=== PATIENT | male | born 1985 | race Two or more races ===

== ENCOUNTER 2017-03-26 18:01 | Inpatient (IN) | payer MEDICAID ==
[~2017-03-26] VITALS: Ht 193 cm; Wt 99.8 kg
[2017-03-26] MEDS ORDERED: DEXTROSE 50%-WATER 50 ML DISP.SYRIN IV PRN (18:30)
[2017-03-26] MEDS ORDERED: ZOLPIDEM TARTRATE 5 MG TABLET PO PRN (18:30)
[2017-03-26] MEDS ORDERED: MAGNESIUM HYDROXIDE 30 ML UDC PO PRN (18:30)
[2017-03-26] MEDS ORDERED: ONDANSETRON HCL/PF 4 MG/2 ML VIAL IVP PRN (18:30)
[2017-03-26] MEDS ORDERED: ACETAMINOPHEN 325 MG TABLET PO PRN (18:30)
[2017-03-26] MEDS ORDERED: Z GUARD REMEDY 2 OZ OINT TP PRN (18:30)
[2017-03-26] MEDS ORDERED: MAG HYDROX/AL HYDROX/SIMETH 30 ML UDC PO PRN (18:30)
[2017-03-26] MEDS ORDERED: INSU100V7 SQ (18:58)
[2017-03-26] MEDS ORDERED: INSU100V3 SQ (18:58)
[2017-03-26] MEDS ORDERED: METF500T4 PO (18:58)
[2017-03-26 20:00] VITALS: BP 168/97
[2017-03-26] MEDS: HYDROCODONE/APAP 5/325MG 1 EACH TABLET PO PRN (21:10)
[2017-03-26 21:11] VITALS: BP 168/97
[2017-03-26] MEDS: IV NS 0.9% 1,000 ML IV PRN (21:20)
[2017-03-26] MEDS: BLOOD SUGAR DIAGNOSTIC 1 EACH STRIP VI SCH (21:20)
[2017-03-26] MEDS: *INSULIN REGULAR(HUMULIN R)HUM 100 UNIT/ML VIAL SQ PRN (21:26)
[2017-03-26] MEDS: D5W IV SCH ×2 (21:47)
[2017-03-26] MEDS: [UNRECOGNIZED DRUG - OTHER] IV SCH ×2 (21:47)
[2017-03-27] MEDS: HYDROCODONE/APAP 10/325MG 1 EA TABLET PO PRN ×2 (02:07→17:33)
[2017-03-27] MEDS: [UNRECOGNIZED DRUG - OTHER] IV SCH ×6 (05:50→20:15)
[2017-03-27] MEDS: D5W IV SCH ×6 (05:50→20:15)
[2017-03-27] MEDS: INSULIN REGULAR, HUMAN 100 UNIT/ML 3 ML VIAL SQ PRN ×3 (05:58→17:11)
[2017-03-27 06:29] LABS: BASOPHILS # (AUTO) 0.1 /CMM (0.0-0.2); BASOPHILS % (AUTO) 0.5 % (0.0-2.0); EOSINOPHILS # (AUTO) 0.3 /CMM (0.0-0.7); EOSINOPHILS % (AUTO) 2.1 % (0.0-6.0); HEMATOCRIT 36 % (39-51); HEMOGLOBIN 12.4 g/dL (13.5-17.5); LYMPHOCYTES % (AUTO) 14.5 % (20.0-44.0); MEAN CORPUSCULAR HEMOGLOBIN 29 PG (26.0-33.0); MEAN CORPUSCULAR HGB CONC 34 g/dl (31.0-36.0); MEAN CORPUSCULAR VOLUME 83 fL (80-96); MONOCYTES # (AUTO) 1.3 /CMM (0.1-1.30); MONOCYTES % (AUTO) 9.4 % (2.0-12.0); NEUTROPHILS # (AUTO) 10.3 /CMM (1.8-8.9); NEUTROPHILS % (AUTO) 73.5 % (43.0-81.0); PLATELET COUNT (AUTO) 285 /CMM (150-450); RDW COEFFICIENT OF VARIATION 11.9 (11.5-15.0); RED BLOOD CELL COUNT(AUTO) 4.34 MIL/uL (4.5-6.0)
[2017-03-27] MEDS: BLOOD SUGAR DIAGNOSTIC 1 EACH STRIP VI SCH ×4 (06:35→21:39)
[2017-03-27 06:47] LABS: CALCIUM, SERUM 9.1 mg/dL (8.5-10.1); CREATININE 1.2 mg/dL (0.6-1.3); MAGNESIUM 1.7 mg/dL (1.8-2.4); PHOSPHORUS 4.3 mg/dL (2.5-4.9); POTASSIUM 3.8 mmol/L (3.5-5.1)
[2017-03-27 08:00] VITALS: BP 148/103
[2017-03-27 09:00] VITALS: BP 152/88
[2017-03-27] MEDS: HYDROCODONE/APAP 5/325MG 1 EACH TABLET PO PRN ×3 (09:29→19:44)
[2017-03-27] MEDS: METFORMIN 500 MG TABLET PO SCH ×2 (10:04→16:23)
[2017-03-27] MEDS ORDERED: Magnesium 1GM/D5W 100ML PREMIX PIGGYBACK IV ONE (11:00)
[2017-03-27] MEDS ORDERED: Magnesium 1GM/D5W 100ML PREMIX 100 ML IV SCH (11:30)
[2017-03-27] MEDS: IV NS 0.9% 1,000 ML IV PRN (12:12)
[2017-03-27] MEDS: NEOMY SULF/BACITRAC ZN/POLY 15 GM TUBE TP SCH (12:29)
[2017-03-27 16:00] VITALS: BP 157/96
[2017-03-27 20:00] VITALS: BP 159/106
[2017-03-27 20:59] VITALS: BP 159/106
[2017-03-27] MEDS ORDERED: LIDOCAINE 1% INJ 50 ML MDV IJ ONE ×2 (21:00→22:00)
[2017-03-27] MEDS ORDERED: INSULIN DETEMIR 100 UNIT/ML CARTRIDGE SQ SCH (22:00)
[2017-03-27] MEDS: *INSULIN REGULAR(HUMULIN R)HUM 100 UNIT/ML VIAL SQ PRN (22:58)
[2017-03-28] MEDS: IV NS 0.9% 1,000 ML IV PRN (01:24)
[2017-03-28] MEDS: HYDROCODONE/APAP 5/325MG 1 EACH TABLET PO PRN ×3 (01:24→19:37)
[2017-03-28] MEDS: D5W IV SCH ×6 (04:17→20:26)
[2017-03-28] MEDS: [UNRECOGNIZED DRUG - OTHER] IV SCH ×6 (04:17→20:26)
[2017-03-28] MEDS: BLOOD SUGAR DIAGNOSTIC 1 EACH STRIP VI SCH ×4 (06:50→22:02)
[2017-03-28] MEDS: INSULIN REGULAR, HUMAN 100 UNIT/ML 3 ML VIAL SQ PRN ×3 (06:56→17:55)
[2017-03-28 08:00] VITALS: BP 159/100
[2017-03-28] MEDS: METFORMIN 500 MG TABLET PO SCH ×2 (08:02→16:58)
[2017-03-28] MEDS: NEOMY SULF/BACITRAC ZN/POLY 15 GM TUBE TP SCH (08:07)
[2017-03-28] MEDS ORDERED: SILVER NITRATE APPLICATOR 1 EA BOX TP ONE (14:00)
[2017-03-28] MEDS ORDERED: LIDOCAINE 2%-EPI 1:100,000 30 ML VIAL TP ONE (14:00)
[2017-03-28 16:00] VITALS: BP 141/90
[2017-03-28 19:56] VITALS: BP 142/92
[2017-03-28 20:01] VITALS: BP 142/92
[2017-03-28] MEDS: *INSULIN REGULAR(HUMULIN R)HUM 100 UNIT/ML VIAL SQ PRN (22:06)
[2017-03-28] MEDS: INSULIN DETEMIR 100 UNIT/ML CARTRIDGE SQ SCH (22:07)
[2017-03-29] MEDS: D5W IV SCH ×6 (04:19→22:21)
[2017-03-29] MEDS: [UNRECOGNIZED DRUG - OTHER] IV SCH ×6 (04:19→22:21)
[2017-03-29] MEDS: HYDROCODONE/APAP 10/325MG 1 EA TABLET PO PRN ×3 (04:37→22:53)
[2017-03-29] MEDS: BLOOD SUGAR DIAGNOSTIC 1 EACH STRIP VI SCH ×4 (06:14→22:25)
[2017-03-29] MEDS: INSULIN REGULAR, HUMAN 100 UNIT/ML 3 ML VIAL SQ PRN ×4 (06:33→23:05)
[2017-03-29 08:00] VITALS: BP 127/73
[2017-03-29] MEDS: METFORMIN 500 MG TABLET PO SCH ×2 (08:59→17:27)
[2017-03-29] MEDS: NEOMY SULF/BACITRAC ZN/POLY 15 GM TUBE TP SCH (09:00)
[2017-03-29 16:00] VITALS: BP 138/87
[2017-03-29 20:00] VITALS: BP 151/101
[2017-03-29] MEDS: INSULIN DETEMIR 100 UNIT/ML CARTRIDGE SQ SCH (23:04)
[2017-03-30] MEDS: D5W IV SCH ×4 (05:06→12:21)
[2017-03-30] MEDS: [UNRECOGNIZED DRUG - OTHER] IV SCH ×4 (05:06→12:21)
[2017-03-30] MEDS: INSULIN REGULAR, HUMAN 100 UNIT/ML 3 ML VIAL SQ PRN ×2 (07:18→12:20)
[2017-03-30] MEDS: BLOOD SUGAR DIAGNOSTIC 1 EACH STRIP VI SCH ×2 (07:42→12:15)
[2017-03-30 08:00] VITALS: BP 154/95
[2017-03-30] MEDS: METFORMIN 500 MG TABLET PO SCH (09:12)
[2017-03-30] MEDS: NEOMY SULF/BACITRAC ZN/POLY 15 GM TUBE TP SCH (09:13)
[2017-03-30] MEDS ORDERED: SULF1TAB48 PO (13:03)
== END 2017-03-30 16:41 | disposition home or self-care (01) | DRG 380 ==
LOC: MED 18:53
PROVIDERS: ADMIT Nurse Practitioner Acute Care; ATTEND Nurse Practitioner Acute Care
PROC: 0JBQ0ZZ Excision of Right Foot Subcutaneous Tissue and Fascia, Open Approach (ICD-10-PCS; principal; 2017-03-27)
PROC: 0JBR0ZZ Excision of Left Foot Subcutaneous Tissue and Fascia, Open Approach (ICD-10-PCS; principal; 2017-03-27)
DX: E11.621 Type 2 diabetes mellitus with foot ulcer (principal); L97.509 Non-pressure chronic ulcer of other part of unspecified foot with unspecified severity; E11.42 Type 2 diabetes mellitus with diabetic polyneuropathy; L03.211 Cellulitis of face; Z91.14 Patient's other noncompliance with medication regimen; L02.01 Cutaneous abscess of face; E11.65 Type 2 diabetes mellitus with hyperglycemia; L03.032 Cellulitis of left toe; E83.42 Hypomagnesemia; F12.20 Cannabis dependence, uncomplicated; L03.031 Cellulitis of right toe; Z79.84 Long term (current) use of oral hypoglycemic drugs; Z79.4 Long term (current) use of insulin
CPT/HCPCS: 36415; 80048-TC; 80061-TC; 82962-TC; 83735-TC; 84100-TC; 85025-TC; 87040-TC; 87081-TC; A6402; A6403; J1815; J2405; J3475; J3490; J7030; J7060; Z7610

== ENCOUNTER 2017-11-22 15:08 | Inpatient (IN) | payer MEDICAID ==
[~2017-11-22] VITALS: Ht 188 cm; Wt 100.2 kg
[~2017-11-22 15:08] MED LIST: INSU100V3 SQ; INSU100V7 SQ; METF500T6 PO; SULF1TAB48 PO
[2017-11-22 16:50] LABS: BASOPHILS % (AUTO) 0.4 % (0.0-2.0); EOSINOPHILS % (AUTO) 0.2 % (0.0-6.0); HEMATOCRIT 37 % (39-51); HEMOGLOBIN 12.3 g/dL (13.5-17.5); LYMPHOCYTES # (AUTO) 1.2 /CMM (0.8-4.8); MEAN CORPUSCULAR HEMOGLOBIN 27 PG (26.0-33.0); MEAN CORPUSCULAR HGB CONC 33 g/dl (31.0-36.0); MEAN CORPUSCULAR VOLUME 82 fL (80-96); MONOCYTES # (AUTO) 1.5 /CMM (0.1-1.30); MONOCYTES % (AUTO) 12.5 % (2.0-12.0); NEUTROPHILS # (AUTO) 8.9 /CMM (1.8-8.9); NEUTROPHILS % (AUTO) 76.9 % (43.0-81.0); PLATELET COUNT (AUTO) 308 /CMM (150-450); RDW COEFFICIENT OF VARIATION 10.9 (11.5-15.0); WHITE BLOOD COUNT (AUTO) 11.6 K/uL (4.3-11.0)
[2017-11-22] MEDS ORDERED: VANCOMYCIN 1 GM in IV D5W 250 ML IV ONE (17:00)
[2017-11-22] MEDS ORDERED: MAG HYDROX/AL HYDROX/SIMETH 30 ML UDC PO PRN (17:00)
[2017-11-22] MEDS ORDERED: PIPERACILLIN /TAZOBACTAM 3.375 G in IV D5W 50 ML IV ONE (17:00)
[2017-11-22] MEDS ORDERED: ONDANSETRON HCL/PF 4 MG/2 ML VIAL IVP PRN (17:00)
[2017-11-22] MEDS ORDERED: Z GUARD REMEDY 2 OZ OINT TP PRN (17:00)
[2017-11-22] MEDS ORDERED: VANCOMYCIN 1 GM in IV NS 0.9% 250 ML IV SCH (17:00)
[2017-11-22] MEDS ORDERED: DEXTROSE 50%-WATER 50 ML DISP.SYRIN IV PRN (17:00)
[2017-11-22] MEDS ORDERED: ACETAMINOPHEN 325 MG TABLET PO PRN (17:00)
[2017-11-22 17:07] LABS: ALBUMIN 3.2 g/dL (3.4-5.0); BILIRUBIN,DIRECT 0.1 mg/dL (0.0-0.2); BILIRUBIN,TOTAL 0.5 mg/dL (0.2-1.0); CREATININE 2.1 mg/dL (0.6-1.3); POTASSIUM 4.1 mmol/L (3.5-5.1); TOTAL PROTEIN, SERUM 8.4 g/dL (6.4-8.2)
[2017-11-22 17:10] LABS: INR 0.94 (0.85-1.15)
[2017-11-22] MEDS ORDERED: IV NS 0.9% 1,000 ML BAG IV ONE (17:30)
[2017-11-22] MEDS ORDERED: INSULIN REGULAR, HUMAN 100 UNIT/ML 10 ML VIAL SQ ONE (17:30)
[2017-11-22 18:13] LABS: APPEARANCE,URINE Clear (CLEAR); BILIRUBIN,URINE Negative (NEGATIVE); BLOOD, URINE Large Ery/uL (NEGATIVE); COLOR,URINE Yellow (YELLOW); KETONES,URINE Negative (NEGATIVE); LEUKOCYTE ESTERASE ,URINE Negative (NEGATIVE); NITRITE, URINE Negative (NEGATIVE); PH,URINE 5.5 (5.0-8.0); PROTEIN,URINE 100 mg/dl (NEGATIVE); UGLUCOSE >=1000 mg/dL (NEGATIVE); UROBILINOGEN,URINE 0.2 EU/dL (0.2)
[2017-11-22] MEDS ORDERED: FEE PK DOSING 1 MIN EA MC ONE (18:13)
[2017-11-22 18:32] LABS: BACTERIA,URINE Few /HPF (None Seen); SQUAMOUS EPITHELIAL CELL,UR Few /HPF (None Seen)
[2017-11-22 20:00] VITALS: BP 130/80
[2017-11-22] MEDS: HYDROCODONE/APAP 5/325MG 1 EACH TABLET PO PRN (20:10)
[2017-11-22] MEDS: ENOXAPARIN SODIUM 40 MG/0.4 ML DISP.SYRIN SQ SCH (20:10)
[2017-11-22] MEDS: BLOOD SUGAR DIAGNOSTIC 1 EACH STRIP VI SCH ×2 (20:13→22:31)
[2017-11-22] MEDS: CEFTRIAXONE 1 G in IV D5W 50 ML IV SCH (20:23)
[2017-11-22] MEDS: INSULIN GLARGINE, 100 UNIT/ML CARTRIDGE SQ SCH (22:29)
[2017-11-23] MEDS: HYDROCODONE/APAP 5/325MG 1 EACH TABLET PO PRN ×3 (02:41→21:15)
[2017-11-23] MEDS: VANCOMYCIN 0.75 GM in IV NS 0.9% 250 ML IV SCH ×2 (05:59→18:05)
[2017-11-23] MEDS: BLOOD SUGAR DIAGNOSTIC 1 EACH STRIP VI SCH ×4 (06:32→21:48)
[2017-11-23] MEDS: INSULIN REGULAR, HUMAN 100 UNIT/ML 3 ML VIAL SQ PRN ×3 (06:32→17:42)
[2017-11-23 07:30] LABS: BASOPHILS % (AUTO) 0.4 % (0.0-2.0); HEMATOCRIT 33 % (39-51); HEMOGLOBIN 11.1 g/dL (13.5-17.5); LYMPHOCYTES # (AUTO) 1.8 /CMM (0.8-4.8); LYMPHOCYTES % (AUTO) 17.3 % (20.0-44.0); MEAN CORPUSCULAR HEMOGLOBIN 28 PG (26.0-33.0); MEAN CORPUSCULAR HGB CONC 34 g/dl (31.0-36.0); MEAN CORPUSCULAR VOLUME 84 fL (80-96); MONOCYTES # (AUTO) 1.5 /CMM (0.1-1.30); MONOCYTES % (AUTO) 14.5 % (2.0-12.0); NEUTROPHILS # (AUTO) 6.9 /CMM (1.8-8.9); NEUTROPHILS % (AUTO) 65.8 % (43.0-81.0); PLATELET COUNT (AUTO) 252 /CMM (150-450); RDW COEFFICIENT OF VARIATION 11.8 (11.5-15.0); RED BLOOD CELL COUNT(AUTO) 3.92 MIL/uL (4.5-6.0); WHITE BLOOD COUNT (AUTO) 10.5 K/uL (4.3-11.0)
[2017-11-23 07:31] LABS: CALCIUM, SERUM 8.8 mg/dL (8.5-10.1); CREATININE 1.6 mg/dL (0.6-1.3); MAGNESIUM 1.9 mg/dL (1.8-2.4); PHOSPHORUS 4.1 mg/dL (2.5-4.9); POTASSIUM 3.9 mmol/L (3.5-5.1)
[2017-11-23 08:00] VITALS: BP 129/73
[2017-11-23] MEDS: IV NS 0.9% 1,000 ML IV PRN ×2 (08:06→23:58)
[2017-11-23 16:00] VITALS: BP 130/82
[2017-11-23] MEDS ORDERED: KETOROLAC TROMETHAMINE INJ 30 MG/ML VIAL ONE (17:32)
[2017-11-23] MEDS: LACTOBACILLUS RHAMNOSUS GG 1 EACH CAP.SPRINK PO SCH (17:42)
[2017-11-23 20:00] VITALS: BP 138/87
[2017-11-23 20:01] VITALS: BP 138/87
[2017-11-23] MEDS: CEFTRIAXONE 1 G in IV D5W 50 ML IV SCH (20:46)
[2017-11-23] MEDS: ENOXAPARIN SODIUM 40 MG/0.4 ML DISP.SYRIN SQ SCH (20:47)
[2017-11-23] MEDS: INSULIN GLARGINE, 100 UNIT/ML CARTRIDGE SQ SCH (21:52)
[2017-11-23] MEDS: *INSULIN REGULAR(HUMULIN R)HUM 100 UNIT/ML VIAL SQ PRN (21:53)
[2017-11-24] MEDS: BLOOD SUGAR DIAGNOSTIC 1 EACH STRIP VI SCH ×4 (06:41→21:25)
[2017-11-24 06:42] LABS: CALCIUM, SERUM 8.9 mg/dL (8.5-10.1); CREATININE 1.5 mg/dL (0.6-1.3); POTASSIUM 3.8 mmol/L (3.5-5.1)
[2017-11-24] MEDS: INSULIN REGULAR, HUMAN 100 UNIT/ML 3 ML VIAL SQ PRN ×3 (06:43→17:59)
[2017-11-24] MEDS: VANCOMYCIN 0.75 GM in IV NS 0.9% 250 ML IV SCH (06:54)
[2017-11-24] MEDS: MAGNESIUM HYDROXIDE 30 ML UDC PO PRN (07:58)
[2017-11-24] MEDS: HYDROCODONE/APAP 5/325MG 1 EACH TABLET PO PRN (07:58)
[2017-11-24 08:00] VITALS: BP 140/90
[2017-11-24] MEDS ORDERED: MORPHINE SULFATE INJ 2 MG/ML DISP.SYRIN IV PRN (09:30)
[2017-11-24] MEDS: LACTOBACILLUS RHAMNOSUS GG 1 EACH CAP.SPRINK PO SCH ×2 (09:49→17:49)
[2017-11-24] MEDS: HYDROCODONE/APAP 10/325MG 1 EA TABLET PO PRN ×2 (11:40→20:04)
[2017-11-24 16:00] VITALS: BP 114/90
[2017-11-24] MEDS: VANCOMYCIN 1.25 GM in IV D5W 500 ML IV SCH (17:48)
[2017-11-24 20:00] VITALS: BP 131/95
[2017-11-24] MEDS: CEFTRIAXONE 1 G in IV D5W 50 ML IV SCH (20:03)
[2017-11-24] MEDS: ENOXAPARIN SODIUM 40 MG/0.4 ML DISP.SYRIN SQ SCH (21:20)
[2017-11-24] MEDS: INSULIN GLARGINE, 100 UNIT/ML CARTRIDGE SQ SCH (21:25)
[2017-11-24] MEDS: *INSULIN REGULAR(HUMULIN R)HUM 100 UNIT/ML VIAL SQ PRN (21:26)
[2017-11-25] MEDS: HYDROCODONE/APAP 10/325MG 1 EA TABLET PO PRN ×3 (04:10→20:40)
[2017-11-25] MEDS: VANCOMYCIN 1.25 GM in IV D5W 500 ML IV SCH ×2 (05:21→17:10)
[2017-11-25] MEDS: BLOOD SUGAR DIAGNOSTIC 1 EACH STRIP VI SCH ×4 (06:06→22:01)
[2017-11-25] MEDS: INSULIN REGULAR, HUMAN 100 UNIT/ML 3 ML VIAL SQ PRN ×3 (06:06→17:13)
[2017-11-25 07:14] LABS: BASOPHILS # (AUTO) 0.1 /CMM (0.0-0.2); BASOPHILS % (AUTO) 0.9 % (0.0-2.0); EOSINOPHILS % (AUTO) 2.9 % (0.0-6.0); HEMATOCRIT 31 % (39-51); HEMOGLOBIN 10.6 g/dL (13.5-17.5); LYMPHOCYTES % (AUTO) 24.9 % (20.0-44.0); MEAN CORPUSCULAR HEMOGLOBIN 28 PG (26.0-33.0); MEAN CORPUSCULAR HGB CONC 34 g/dl (31.0-36.0); MEAN CORPUSCULAR VOLUME 84 fL (80-96); MONOCYTES # (AUTO) 0.9 /CMM (0.1-1.30); MONOCYTES % (AUTO) 11.2 % (2.0-12.0); NEUTROPHILS # (AUTO) 4.9 /CMM (1.8-8.9); NEUTROPHILS % (AUTO) 60.1 % (43.0-81.0); PLATELET COUNT (AUTO) 285 /CMM (150-450); RDW COEFFICIENT OF VARIATION 11.9 (11.5-15.0); RED BLOOD CELL COUNT(AUTO) 3.75 MIL/uL (4.5-6.0); WHITE BLOOD COUNT (AUTO) 8.2 K/uL (4.3-11.0)
[2017-11-25 07:29] LABS: CALCIUM, SERUM 8.7 mg/dL (8.5-10.1); CREATININE 1.5 mg/dL (0.6-1.3); MAGNESIUM 1.8 mg/dL (1.8-2.4); PHOSPHORUS 4.1 mg/dL (2.5-4.9); POTASSIUM 4.1 mmol/L (3.5-5.1)
[2017-11-25 08:00] VITALS: BP 129/77
[2017-11-25] MEDS: LACTOBACILLUS RHAMNOSUS GG 1 EACH CAP.SPRINK PO SCH ×2 (08:40→16:55)
[2017-11-25] MEDS: IV NS 0.9% 1,000 ML IV PRN (14:11)
[2017-11-25 16:00] VITALS: BP 130/70
[2017-11-25 20:00] VITALS: BP 133/78
[2017-11-25] MEDS: CEFTRIAXONE 1 G in IV D5W 50 ML IV SCH (20:26)
[2017-11-25] MEDS: ENOXAPARIN SODIUM 40 MG/0.4 ML DISP.SYRIN SQ SCH (20:43)
[2017-11-25] MEDS: INSULIN GLARGINE, 100 UNIT/ML CARTRIDGE SQ SCH (22:01)
[2017-11-25] MEDS: *INSULIN REGULAR(HUMULIN R)HUM 100 UNIT/ML VIAL SQ PRN (22:03)
[2017-11-25] MEDS: ZOLPIDEM TARTRATE 5 MG TABLET PO PRN (22:05)
[2017-11-26] VITALS (7 sets, daily range): BP systolic 122–136; BP diastolic 87–92
[2017-11-26] MEDS: IV NS 0.9% 1,000 ML IV PRN (05:50)
[2017-11-26] MEDS: BLOOD SUGAR DIAGNOSTIC 1 EACH STRIP VI SCH ×4 (05:50→21:43)
[2017-11-26] MEDS: HYDROCODONE/APAP 10/325MG 1 EA TABLET PO PRN ×3 (05:53→20:44)
[2017-11-26] MEDS: INSULIN REGULAR, HUMAN 100 UNIT/ML 3 ML VIAL SQ PRN ×3 (06:11→17:21)
[2017-11-26 07:09] LABS: CREATININE 1.5 mg/dL (0.6-1.3); MAGNESIUM 1.8 mg/dL (1.8-2.4); PHOSPHORUS 4.5 mg/dL (2.5-4.9); POTASSIUM 4.4 mmol/L (3.5-5.1)
[2017-11-26] MEDS: VANCOMYCIN 1.25 GM in IV D5W 500 ML IV SCH (08:13)
[2017-11-26] MEDS: LACTOBACILLUS RHAMNOSUS GG 1 EACH CAP.SPRINK PO SCH ×2 (08:18→17:09)
[2017-11-26] MEDS: MAGNESIUM HYDROXIDE 30 ML UDC PO PRN (08:29)
[2017-11-26] MEDS ORDERED: BISACODYL SUPP (10 MG) 10 MG/SUPP.RECT SUPP.RECT RC PRN (14:30)
[2017-11-26] MEDS: DOCUSATE SODIUM 100 MG CAPSULE PO SCH (17:09)
[2017-11-26] MEDS: VANCOMYCIN 1 GM in IV D5W 250 ML IV SCH (17:10)
[2017-11-26] MEDS: CEFTRIAXONE 1 G in IV D5W 50 ML IV SCH (20:13)
[2017-11-26] MEDS: ENOXAPARIN SODIUM 40 MG/0.4 ML DISP.SYRIN SQ SCH (20:46)
[2017-11-26] MEDS: INSULIN GLARGINE, 100 UNIT/ML CARTRIDGE SQ SCH (22:15)
[2017-11-27] MEDS: ZOLPIDEM TARTRATE 5 MG TABLET PO PRN ×2 (00:49→22:22)
[2017-11-27] MEDS: VANCOMYCIN 1 GM in IV D5W 250 ML IV SCH ×2 (05:27→18:01)
[2017-11-27] MEDS: BLOOD SUGAR DIAGNOSTIC 1 EACH STRIP VI SCH ×4 (06:29→21:59)
[2017-11-27] MEDS: HYDROCODONE/APAP 10/325MG 1 EA TABLET PO PRN ×2 (06:36→16:53)
[2017-11-27] MEDS: INSULIN REGULAR, HUMAN 100 UNIT/ML 3 ML VIAL SQ PRN ×2 (06:42→12:52)
[2017-11-27 07:21] LABS: CALCIUM, SERUM 9.3 mg/dL (8.5-10.1); CREATININE 1.5 mg/dL (0.6-1.3); POTASSIUM 4.1 mmol/L (3.5-5.1)
[2017-11-27 07:26] LABS: MAGNESIUM 1.9 mg/dL (1.8-2.4); PHOSPHORUS 4.7 mg/dL (2.5-4.9)
[2017-11-27 08:00] VITALS: BP 122/71
[2017-11-27] MEDS: LACTOBACILLUS RHAMNOSUS GG 1 EACH CAP.SPRINK PO SCH ×2 (09:23→18:00)
[2017-11-27] MEDS: DOCUSATE SODIUM 100 MG CAPSULE PO SCH ×2 (09:23→18:00)
[2017-11-27 16:00] VITALS: BP 140/86
[2017-11-27] MEDS ORDERED: DOCUSATE SODIUM 100 MG CAPSULE PO SCH (17:00)
[2017-11-27] MEDS: *INSULIN REGULAR(HUMULIN R)HUM 100 UNIT/ML VIAL SQ PRN (17:54)
[2017-11-27] MEDS: CEFTRIAXONE 1 G in IV D5W 50 ML IV SCH (19:56)
[2017-11-27 20:00] VITALS: BP_SYST 138; BP_SYST 149; BP_DIAS 80; BP_DIAS 98
[2017-11-27] MEDS: ENOXAPARIN SODIUM 40 MG/0.4 ML DISP.SYRIN SQ SCH (21:36)
[2017-11-27 22:00] VITALS: BP 138/98
[2017-11-27] MEDS: INSULIN GLARGINE, 100 UNIT/ML CARTRIDGE SQ SCH (22:00)
[2017-11-27] MEDS: IV NS 0.9% 1,000 ML IV PRN (22:22)
[2017-11-28] MEDS: VANCOMYCIN 1 GM in IV D5W 250 ML IV SCH ×2 (05:40→18:15)
[2017-11-28] MEDS: BLOOD SUGAR DIAGNOSTIC 1 EACH STRIP VI SCH ×4 (06:31→21:33)
[2017-11-28] MEDS: INSULIN REGULAR, HUMAN 100 UNIT/ML 3 ML VIAL SQ PRN ×3 (06:32→18:07)
[2017-11-28 08:00] VITALS: BP 126/82
[2017-11-28 08:29] LABS: BASOPHILS # (AUTO) 0.1 /CMM (0.0-0.2); BASOPHILS % (AUTO) 0.7 % (0.0-2.0); EOSINOPHILS % (AUTO) 4.4 % (0.0-6.0); HEMATOCRIT 35 % (39-51); HEMOGLOBIN 11.8 g/dL (13.5-17.5); MEAN CORPUSCULAR HEMOGLOBIN 28 PG (26.0-33.0); MEAN CORPUSCULAR HGB CONC 34 g/dl (31.0-36.0); MEAN CORPUSCULAR VOLUME 84 fL (80-96); MONOCYTES # (AUTO) 0.9 /CMM (0.1-1.30); MONOCYTES % (AUTO) 10.5 % (2.0-12.0); NEUTROPHILS # (AUTO) 5.7 /CMM (1.8-8.9); NEUTROPHILS % (AUTO) 62.4 % (43.0-81.0); PLATELET COUNT (AUTO) 378 /CMM (150-450); RDW COEFFICIENT OF VARIATION 11.9 (11.5-15.0); WHITE BLOOD COUNT (AUTO) 9.1 K/uL (4.3-11.0)
[2017-11-28 08:41] LABS: CALCIUM, SERUM 9.6 mg/dL (8.5-10.1); CREATININE 1.5 mg/dL (0.6-1.3); POTASSIUM 4.2 mmol/L (3.5-5.1)
[2017-11-28] MEDS: DOCUSATE SODIUM 100 MG CAPSULE PO SCH ×2 (09:19→18:00)
[2017-11-28] MEDS: LACTOBACILLUS RHAMNOSUS GG 1 EACH CAP.SPRINK PO SCH ×2 (09:19→18:00)
[2017-11-28 10:00] VITALS: BP 126/82
[2017-11-28] MEDS: HYDROCODONE/APAP 10/325MG 1 EA TABLET PO PRN ×2 (12:03→18:11)
[2017-11-28] MEDS: IV NS 0.9% 1,000 ML IV PRN (15:15)
[2017-11-28 16:00] VITALS: BP 143/83
[2017-11-28 20:00] VITALS: BP 161/78
[2017-11-28] MEDS: CEFTRIAXONE 1 G in IV D5W 50 ML IV SCH (20:18)
[2017-11-28] MEDS: ENOXAPARIN SODIUM 40 MG/0.4 ML DISP.SYRIN SQ SCH (20:18)
[2017-11-28] MEDS: *INSULIN REGULAR(HUMULIN R)HUM 100 UNIT/ML VIAL SQ PRN (21:50)
[2017-11-28] MEDS: INSULIN GLARGINE, 100 UNIT/ML CARTRIDGE SQ SCH (21:50)
[2017-11-28] MEDS: HYDROCODONE/APAP 5/325MG 1 EACH TABLET PO PRN (21:57)
[2017-11-28] MEDS: ZOLPIDEM TARTRATE 5 MG TABLET PO PRN (22:32)
[2017-11-28 22:34] VITALS: BP 135/75
[2017-11-29] MEDS: HYDROCODONE/APAP 10/325MG 1 EA TABLET PO PRN ×3 (00:17→17:51)
[2017-11-29] MEDS: VANCOMYCIN 1 GM in IV D5W 250 ML IV SCH (05:05)
[2017-11-29] MEDS: BLOOD SUGAR DIAGNOSTIC 1 EACH STRIP VI SCH ×4 (06:21→21:35)
[2017-11-29 08:00] VITALS: BP 125/83
[2017-11-29 08:09] LABS: BASOPHILS # (AUTO) 0.1 /CMM (0.0-0.2); BASOPHILS % (AUTO) 0.7 % (0.0-2.0); EOSINOPHILS % (AUTO) 3.7 % (0.0-6.0); HEMATOCRIT 37 % (39-51); HEMOGLOBIN 12.4 g/dL (13.5-17.5); LYMPHOCYTES # (AUTO) 2.5 /CMM (0.8-4.8); MEAN CORPUSCULAR HEMOGLOBIN 28 PG (26.0-33.0); MEAN CORPUSCULAR HGB CONC 34 g/dl (31.0-36.0); MEAN CORPUSCULAR VOLUME 84 fL (80-96); MONOCYTES # (AUTO) 0.8 /CMM (0.1-1.30); MONOCYTES % (AUTO) 8.8 % (2.0-12.0); NEUTROPHILS # (AUTO) 5.7 /CMM (1.8-8.9); NEUTROPHILS % (AUTO) 60.8 % (43.0-81.0); PLATELET COUNT (AUTO) 425 /CMM (150-450); RED BLOOD CELL COUNT(AUTO) 4.39 MIL/uL (4.5-6.0); WHITE BLOOD COUNT (AUTO) 9.4 K/uL (4.3-11.0)
[2017-11-29 08:24] LABS: CALCIUM, SERUM 9.3 mg/dL (8.5-10.1); CREATININE 1.5 mg/dL (0.6-1.3); MAGNESIUM 1.9 mg/dL (1.8-2.4); POTASSIUM 3.8 mmol/L (3.5-5.1)
[2017-11-29] MEDS: LACTOBACILLUS RHAMNOSUS GG 1 EACH CAP.SPRINK PO SCH ×2 (09:39→17:51)
[2017-11-29] MEDS: DOCUSATE SODIUM 100 MG CAPSULE PO SCH ×2 (09:39→17:51)
[2017-11-29 10:00] VITALS: BP 125/83
[2017-11-29] MEDS: INSULIN REGULAR, HUMAN 100 UNIT/ML 3 ML VIAL SQ PRN ×2 (12:49→18:19)
[2017-11-29] MEDS: MORPHINE SULFATE INJ 4 MG/ML DISP.SYRIN IV PRN ×2 (14:28→21:44)
[2017-11-29 16:00] VITALS: BP 150/75
[2017-11-29] MEDS: MAGNESIUM HYDROXIDE 30 ML UDC PO PRN (17:52)
[2017-11-29] MEDS: CEFTRIAXONE 2 G in IV D5W 100 ML IV SCH (19:40)
[2017-11-29] MEDS: IV NS 0.9% 1,000 ML IV PRN (19:40)
[2017-11-29 20:15] VITALS: BP 129/79
[2017-11-29] MEDS: ENOXAPARIN SODIUM 40 MG/0.4 ML DISP.SYRIN SQ SCH (21:13)
[2017-11-29] MEDS: INSULIN GLARGINE, 100 UNIT/ML CARTRIDGE SQ SCH (21:34)
[2017-11-29] MEDS: *INSULIN REGULAR(HUMULIN R)HUM 100 UNIT/ML VIAL SQ PRN (21:35)
[2017-11-30] MEDS: HYDROCODONE/APAP 10/325MG 1 EA TABLET PO PRN ×4 (00:34→18:35)
[2017-11-30] MEDS: MORPHINE SULFATE INJ 4 MG/ML DISP.SYRIN IV PRN ×4 (04:28→20:33)
[2017-11-30] MEDS: BLOOD SUGAR DIAGNOSTIC 1 EACH STRIP VI SCH ×4 (06:48→21:59)
[2017-11-30] MEDS: INSULIN REGULAR, HUMAN 100 UNIT/ML 3 ML VIAL SQ PRN ×2 (06:58→16:21)
[2017-11-30 07:38] LABS: BASOPHILS # (AUTO) 0.1 /CMM (0.0-0.2); EOSINOPHILS % (AUTO) 4.6 % (0.0-6.0); HEMATOCRIT 36 % (39-51); HEMOGLOBIN 11.9 g/dL (13.5-17.5); LYMPHOCYTES # (AUTO) 3.2 /CMM (0.8-4.8); LYMPHOCYTES % (AUTO) 32.2 % (20.0-44.0); MEAN CORPUSCULAR HEMOGLOBIN 28 PG (26.0-33.0); MEAN CORPUSCULAR HGB CONC 33 g/dl (31.0-36.0); MEAN CORPUSCULAR VOLUME 84 fL (80-96); MONOCYTES # (AUTO) 0.9 /CMM (0.1-1.30); MONOCYTES % (AUTO) 9.3 % (2.0-12.0); NEUTROPHILS # (AUTO) 5.3 /CMM (1.8-8.9); NEUTROPHILS % (AUTO) 52.9 % (43.0-81.0); PLATELET COUNT (AUTO) 426 /CMM (150-450); RDW COEFFICIENT OF VARIATION 11.5 (11.5-15.0); RED BLOOD CELL COUNT(AUTO) 4.23 MIL/uL (4.5-6.0); WHITE BLOOD COUNT (AUTO) 9.9 K/uL (4.3-11.0)
[2017-11-30 07:54] LABS: CALCIUM, SERUM 9.2 mg/dL (8.5-10.1); CREATININE 1.6 mg/dL (0.6-1.3); PHOSPHORUS 4.8 mg/dL (2.5-4.9); POTASSIUM 4.3 mmol/L (3.5-5.1)
[2017-11-30 08:00] VITALS: BP 117/91
[2017-11-30] MEDS: DOCUSATE SODIUM 100 MG CAPSULE PO SCH ×2 (08:56→16:15)
[2017-11-30] MEDS: LACTOBACILLUS RHAMNOSUS GG 1 EACH CAP.SPRINK PO SCH ×2 (08:56→16:15)
[2017-11-30 10:00] VITALS: BP 117/91
[2017-11-30 16:00] VITALS: BP 142/81
[2017-11-30] MEDS: IV NS 0.9% 1,000 ML IV PRN (18:35)
[2017-11-30 20:00] VITALS: BP 137/92
[2017-11-30] MEDS: CEFTRIAXONE 2 G in IV D5W 100 ML IV SCH (20:28)
[2017-11-30] MEDS: ENOXAPARIN SODIUM 40 MG/0.4 ML DISP.SYRIN SQ SCH (20:34)
[2017-11-30] MEDS: *INSULIN REGULAR(HUMULIN R)HUM 100 UNIT/ML VIAL SQ PRN (21:39)
[2017-11-30] MEDS: INSULIN GLARGINE, 100 UNIT/ML CARTRIDGE SQ SCH (21:39)
[2017-11-30 22:00] VITALS: BP 137/92
[2017-12-01] MEDS: MORPHINE SULFATE INJ 4 MG/ML DISP.SYRIN IV PRN ×4 (01:40→21:00)
[2017-12-01] MEDS: HYDROCODONE/APAP 10/325MG 1 EA TABLET PO PRN ×4 (04:04→23:34)
[2017-12-01] MEDS: BLOOD SUGAR DIAGNOSTIC 1 EACH STRIP VI SCH ×4 (07:07→23:42)
[2017-12-01] MEDS: *INSULIN REGULAR(HUMULIN R)HUM 100 UNIT/ML VIAL SQ PRN ×2 (07:09→23:35)
[2017-12-01 07:56] LABS: BASOPHILS # (AUTO) 0.1 /CMM (0.0-0.2); BASOPHILS % (AUTO) 0.8 % (0.0-2.0); CALCIUM, SERUM 8.9 mg/dL (8.5-10.1); CREATININE 1.8 mg/dL (0.6-1.3); EOSINOPHILS % (AUTO) 4.1 % (0.0-6.0); HEMATOCRIT 32 % (39-51); HEMOGLOBIN 10.7 g/dL (13.5-17.5); LYMPHOCYTES # (AUTO) 2.4 /CMM (0.8-4.8); MAGNESIUM 1.9 mg/dL (1.8-2.4); MEAN CORPUSCULAR HEMOGLOBIN 27 PG (26.0-33.0); MEAN CORPUSCULAR HGB CONC 34 g/dl (31.0-36.0); MEAN CORPUSCULAR VOLUME 81 fL (80-96); MONOCYTES # (AUTO) 0.9 /CMM (0.1-1.30); MONOCYTES % (AUTO) 10.5 % (2.0-12.0); NEUTROPHILS # (AUTO) 4.7 /CMM (1.8-8.9); NEUTROPHILS % (AUTO) 55.6 % (43.0-81.0); PHOSPHORUS 4.9 mg/dL (2.5-4.9); PLATELET COUNT (AUTO) 359 /CMM (150-450); POTASSIUM 4.3 mmol/L (3.5-5.1); RED BLOOD CELL COUNT(AUTO) 3.91 MIL/uL (4.5-6.0); WHITE BLOOD COUNT (AUTO) 8.4 K/uL (4.3-11.0)
[2017-12-01 08:00] VITALS: BP 134/94
[2017-12-01] MEDS: DOCUSATE SODIUM 100 MG CAPSULE PO SCH ×2 (08:58→16:40)
[2017-12-01] MEDS: LACTOBACILLUS RHAMNOSUS GG 1 EACH CAP.SPRINK PO SCH ×2 (08:58→16:40)
[2017-12-01] MEDS ORDERED: LIDOCAINE 1%-EPI 1:200,000 SDV 10 ML VIAL IJ ONE (11:30)
[2017-12-01] MEDS ORDERED: MORPHINE SULFATE INJ 2 MG/ML DISP.SYRIN IV ONE (12:30)
[2017-12-01] MEDS: INSULIN REGULAR, HUMAN 100 UNIT/ML 3 ML VIAL SQ PRN (12:34)
[2017-12-01 16:00] VITALS: BP 133/95
[2017-12-01 20:00] VITALS: BP 144/94
[2017-12-01] MEDS: CEFTRIAXONE 2 G in IV D5W 100 ML IV SCH (20:46)
[2017-12-01] MEDS: ENOXAPARIN SODIUM 40 MG/0.4 ML DISP.SYRIN SQ SCH (21:01)
[2017-12-01] MEDS: INSULIN GLARGINE, 100 UNIT/ML CARTRIDGE SQ SCH (23:35)
[2017-12-02] MEDS: MORPHINE SULFATE INJ 4 MG/ML DISP.SYRIN IV PRN (02:22)
[2017-12-02 06:48] LABS: CALCIUM, SERUM 8.9 mg/dL (8.5-10.1); CREATININE 1.6 mg/dL (0.6-1.3); POTASSIUM 3.9 mmol/L (3.5-5.1)
[2017-12-02] MEDS: BLOOD SUGAR DIAGNOSTIC 1 EACH STRIP VI SCH (07:33)
[2017-12-02] MEDS: *INSULIN REGULAR(HUMULIN R)HUM 100 UNIT/ML VIAL SQ PRN (07:33)
[2017-12-02] MEDS: LACTOBACILLUS RHAMNOSUS GG 1 EACH CAP.SPRINK PO SCH (08:30)
[2017-12-02] MEDS: DOCUSATE SODIUM 100 MG CAPSULE PO SCH (08:30)
[2017-12-02] MEDS: HYDROCODONE/APAP 10/325MG 1 EA TABLET PO PRN (08:31)
[2017-12-02 09:18] VITALS: BP 123/73
== END 2017-12-02 11:45 | disposition home or self-care (01) | DRG 380 ==
LOC: ER 15:09 → MED 17:48 → MEDSG2 11-30 06:37
PROVIDERS: ADMIT Internal Medicine; ATTEND Internal Medicine
PROC: 0JBQ0ZZ Excision of Right Foot Subcutaneous Tissue and Fascia, Open Approach (ICD-10-PCS; principal; 2017-11-23)
PROC: 0JBQ0ZZ Excision of Right Foot Subcutaneous Tissue and Fascia, Open Approach (ICD-10-PCS; 2017-12-01)
PROC: 0W983ZZ Drainage of Chest Wall, Percutaneous Approach (ICD-10-PCS; 2017-12-01)
DX: E11.621 Type 2 diabetes mellitus with foot ulcer (principal); L97.518 Non-pressure chronic ulcer of other part of right foot with other specified severity; N17.0 Acute kidney failure with tubular necrosis; E11.22 Type 2 diabetes mellitus with diabetic chronic kidney disease; I12.9 Hypertensive chronic kidney disease with stage 1 through stage 4 chronic kidney disease, or unspecified chronic kidney disease; S92.252A Displaced fracture of navicular [scaphoid] of left foot, initial encounter for closed fracture; D64.9 Anemia, unspecified; E44.1 Mild protein-calorie malnutrition; L03.115 Cellulitis of right lower limb; E11.42 Type 2 diabetes mellitus with diabetic polyneuropathy; E11.65 Type 2 diabetes mellitus with hyperglycemia; N18.9 Chronic kidney disease, unspecified; E87.1 Hypo-osmolality and hyponatremia; E78.5 Hyperlipidemia, unspecified; K21.9 Gastro-esophageal reflux disease without esophagitis; Z79.4 Long term (current) use of insulin; Z91.19 Patient's noncompliance with other medical treatment and regimen; Z68.28 Body mass index [BMI] 28.0-28.9, adult; X58.XXXA Exposure to other specified factors, initial encounter; Y93.9 Activity, unspecified; Y92.009 Unspecified place in unspecified non-institutional (private) residence as the place of occurrence of the external cause; L02.213 Cutaneous abscess of chest wall; F19.10 Other psychoactive substance abuse, uncomplicated; Z79.84 Long term (current) use of oral hypoglycemic drugs; N39.0 Urinary tract infection, site not specified; F17.200 Nicotine dependence, unspecified, uncomplicated; M21.42 Flat foot [pes planus] (acquired), left foot
CPT/HCPCS: 36415; 71045-TC; 73630-TC; 73700-TC; 80048-TC; 80076-TC; 80202-TC; 81000-TC; 82962-TC; 83605-TC; 83735-TC; 84100-TC; 85025-TC; 85730-TC; 87040-TC; 87070-TC; 87081-TC; 87086-TC; 87186-TC; 93971-TC; A4606; A6402; A6403; A6407; J0696; J1650; J1815; J1885; J2270; J2543; J3370; J3490; J7030; J7050; J7060; Z7610